=== PATIENT | female | born 1930 | race Caucasian/White ===

== ENCOUNTER 2017-02-23 10:11 | Emergency (ER) | payer MEDICARE, OTHER ==
[~2017-02-23] VITALS: Ht 162.6 cm; Wt 66.7 kg
[~2017-02-23 10:11] MED LIST: AMLO5TAB2 PO; CHOL20002 PO; LISI-552 PO; MECL-106 PO; MULT-974 PO; OMEP20CA12 PO; ONDA4TAB8 PO; PRAV40TA2 PO; SCOP1PAT TD
[2017-02-23] MEDS ORDERED: L.E.T. SYRINGE 5 ML ONE (10:16)
--- OUTSIDE RECORDS SUMMARY | 2017-02-23 10:21 | XMS REPORT | Clinical Summary ---
Author Author [facility] Organization [facility] Address Unknown Phone Unavailable Care Team Providers Care Project Management Analyst Name Role Phone PCP Unavailable Source Comments Some departments are not documenting in the electronic medical record. If you do not see the information that you expected, contact Release of Information in the Health Information Management department at [phone] for further assistance in locating additional records.[facility] Allergies No Known Allergies Current Medications Prescription Sig. Disp. Refills Start End Date Status Date cholecalciferol (Vitamin Take 2,000 Units by mouth Active D3) (VITAMIN D-3) 1,000 daily. units tablet MULTIVITAMIN PO Take 1 Cap by mouth Active daily. omeprazole DR(+) Take 20 mg by mouth Active (PRILOSEC) 20 mg capsule daily. pravastatin (PRAVACHOL) Take 1 Tab by mouth 90 Cap 3 09/29/19 Active 40 mg tablet daily. 16 amLODIPine (NORVASC) 5 mg Take 1 Tab by mouth 90 Tab 1 05/15/20 Active tablet daily. 16 lisinopril (PRINIVIL; TAKE 1 TABLET TWICE A DAY 180 Tab 2 06/04/20 Active ZESTRIL) 20 mg tablet 16 Active Problems Problem Noted Date Essential hypertension 09/28/2015 Hyperlipidemia 09/28/2015 Hyperglycemia 03/10/2014 Dysphagia 04/20/2013 Hypertension Hyperlipidemia Sleep disorder Arthritis Stomach disorder Immunizations Name Dates Previously Given Next Due Flu Vaccine Trivalent >64 04/13/2015 Yo High-dose (Preservative Free) Pneumococcal Vaccine 07/08/2010 (23-Julissa Adult) Pneumococcal 03/23/2015 Vaccine(13-[facility] Peds/immunocompromised adult) Tdap Vaccine 10/19/2013 Family History Medical History Relation Name Comments Diabetes Father Heart Disease Father Diabetes Maternal Uncle Hypertension Mother Diabetes Sister Relation Name Status Comments Father heart (Age 58) Maternal Uncle Mother (Age 85) Other diabetes (Age 77) Sister Social History Tobacco Use Types Packs/Day Years Used Date Never Smoker Smokeless Tobacco: Never Used Tobacco Cessation: Counseling Given: No Alcohol Use Drinks/Week oz/Week Comments No Sex Assigned at Date Recorded Not on file Last Filed Vital Signs Vital Sign Reading Time Taken Blood Pressure 130/88 09/28/2015 9:06 AM CDT Pulse 80 09/28/2015 9:06 AM CDT Temperature 36.7 C (98 F) 06/24/2015 12:55 PM DECORATING INSTRUCTOR Respiratory Rate 14 07/15/2015 10:11 AM DECORATING INSTRUCTOR Oxygen Saturation 98% 06/24/2015 12:55 PM DECORATING INSTRUCTOR Inhaled Oxygen - - Concentration Weight 68.4 kg (150 lb 12.8 oz) 09/28/2015 9:06 AM CDT Height 162.6 cm (5' 4") 09/28/2015 9:06 AM CDT Body Mass Index 25.88 09/28/2015 9:06 AM CDT Plan of Treatment Health Maintenance Due Date Last Done Comments PHYSICAL (COMPREHENSIVE) 10/19/2014 10/19/2013 EXAM INFLUENZA VACCINE 03/08/2017 04/13/2015 TETANUS VACCINE 10/20/2023 10/19/2013 SHINGLES VACCINE Addressed 10/19/2008 (Previously completed) Overridden with the intention of not completing the topic OSTEOPOROSIS SCREENING Completed 10/19/2013 PERTUSSIS VACCINE Completed 10/19/2013 PREVNAR/PNEUMOVAX Completed 03/23/2015, 07/08/2010 Results Not on filefrom Last 3 Months
[2017-02-23] MEDS ORDERED: fentaNYL INJECTION 100 MCG/2 ML AMP IVP STA (10:30)
[2017-02-23] MEDS ORDERED: TETANUS,DIPTH,PERTUSS P/F (BOOSTRIX) 0.5 ML VIAL IM STA (10:30)
--- NOTE | 2017-02-23 10:50 | ED Fall/Injury ---
General Chief Complaint: Trauma-Non Activation Stated Complaint: FALL Nursing Triage Note: SEE NON-TRAUMA ACTIVATION Source: patient Exam Limitations: no limitations History of Present Illness Time seen by provider: 10:17 Initial Comments Here with report of pain to left wrist and left side of head after falling while walking her dog. She apparently tripped on a curb/sidewalk and landed on her left side. She broke her fall with her left wrist but did hit her head on the left. She has 3 cm laceration to the left side of the face lateral to the left eye and brow. Complains of pain and deformity of the left wrist. Has previously broken the left wrist several years ago. Denies loss of consciousness. Tetanus is not up-to-date. Location Injury Occurred: [place] Occurred: just prior to arrival (approximately 30 minutes ago) Severity: moderate Injuries/Pain Location: face, upper extremity Context: tripped Loss of Consciousness: no loss of consciousness Modifying Factors: Improves With Immobilization, Worse With Movement, Improves With Pain Medication Associated Symptoms (Fall): No Abdominal Pain, No Chest Pain, Headache, No Muscle Spasms, No Nausea/Vomiting, No Neck Pain, No Shortness of Air Allergies and Home Medications Allergies Coded Allergies: No Known Drug Allergies (Unverified , 04/24/16) Home Medications Amlodipine Besylate 5 Mg Tablet, 5 MG PO DAILY, (Reported) Cholecalciferol (Vitamin D3) 2,000 Unit Capsule, 2,000 UNIT PO DAILY, (Reported) Lisinopril 20 Mg Tablet, 20 MG PO BID, (Reported) Multivitamin 1 Each Tablet, 1 EACH PO DAILY, (Reported) Omeprazole 20 Mg Capsule.dr, 20 MG PO DAILY, (Reported) Pravastatin Sodium 40 Mg Tablet, 40 MG PO DAILY, (Reported) Constitutional: see HPI, No chills, No fever Eyes: No Symptoms Reported Ears, Nose, Mouth, Throat: see HPI, denies ear pain, denies nose pain, denies nose discharge Respiratory: no symptoms reported Cardiovascular: no symptoms reported Gastrointestinal: no symptoms reported, No abdominal pain, No nausea, No vomiting Genitourinary: no symptoms reported Musculoskeletal: see HPI, joint pain, joint swelling, muscle pain Skin: see HPI, change in color, lesions Psychiatric/Neurological: No Symptoms Reported, Denies Headache, Denies Numbness, Denies Paresthesia, Denies Tingling, Denies Weakness All Other Systems Reviewed Negative Unless Noted: Yes Past Jjrsqvn-Rpmzkt-Nwexxi Hx Patient Social History Alcohol Use: Denies Use Recreational Drug Use: No Smoking Status: Never a Smoker Recent Foreign Travel: No Contact w/Someone Who Travel: No Recent Infectious Disease Expo: No Recent Hopitalizations: No Immunizations Up To Date Tetanus Booster (TDap): More than 5yrs Date of Influenza Vaccine: Apr 10, 2016 Seasonal Allergies Seasonal Allergies: Yes Surgeries HX Surgeries: Yes Surgeries: Appendectomy, Bladder Surgery, Cystectomy, Hysterectomy Respiratory Hx Respiratory Disorders: No Cardiovascular Hx Cardiac Disorders: Yes Cardiac Disorders: High Cholesterol, Hypertension Neurological Hx Neurological Disorders: No Genitourinary Hx Genitourinary Disorders: No Gastrointestinal Hx Gastrointestinal Disorders: Yes Gastrointestinal Disorders: Gastroesophageal Reflux Musculoskeletal Hx Musculoskeletal Disorders: No Endocrine Hx Endocrine Disorders: No HEENT HX ENT Disorders: Yes Hearing Impairment: Hard of Hearing, Bilateral Hearing Aide Cancer Hx Cancer: No Psychosocial Hx Psychiatric Problems: No Integumentary HX Skin/Integumentary Disorder: No Blood Transfusions Hx Blood Disorders: No Reviewed Nursing Assessment Reviewed/Agree w Nursing PMH: Yes Family Medical History Significant Family History: No Pertinent Family Hx Physical Exam Vital Signs Vital Sign - Last 12Hours 02/23/17 10:12 Temp 97.8 Pulse 93 Resp 18 B/P (MAP) 174/86 Pulse Ox 99 Capillary Refill : Less Than 3 Seconds General Appearance: WD/WN, no apparent distress HEENT: PERRL/EOMI, TMs normal, pharynx normal, other (laceration left side of face near and lateral to the left eye and brow. Approximately 3 cm) Neck: full range of motion, supple Cardiovascular: regular rate, rhythm, no murmur Respiratory: lungs clear, normal breath sounds Gastrointestinal: non tender, soft Back: normal inspection, no CVA tenderness, no vertebral tenderness Extremities: non-tender, normal inspection Neurologic/Psychiatric: alert, oriented x 3 Skin: warm/dry, other (approximately 3 cm laceration to the area of the left side of the face lateral to the left eye vertically oriented. Abrasion noted to the left knee superficial and approximately 3 x 5 cm) Luis Coma Score Best Eye Response: (4) Open Spontaneously Best Verbal Response: (5) Oriented Best Motor Response: (6) Obeys Commands Laceration Repair : Wound Location: Face Other Wound Location Left lateral face Wound Length (cm): 3 Wound's Depth, Shape: superficial Wound Explored: contaminated Irrigated w/ Saline (ccs): 50 Betadine Prep?: No Wound Debrided: minimal Other Closure Supply: Wound Adhesive Progress Cleaned with Betasept and saline. Covered with LET for anesthesia. Closed with skin glue. Tolerated procedure well. No complications. Splinting and Joint Reduction : Pre-Proc Neuro Vasc Exam: normal Post-Proc Neuro Vasc Exam: normal Progress Sugar tong splint placed and joint reduced with fracture alignment performed by me after placement of splint after hematoma block done. Patient tolerated procedure well with no Occasions. Distal neurovascular status intact after placement of splint. Patient reports markedly reduced pain. Hand-Made Type: fiberglass Splint Application: Short Arm (sugar tong) Progress/Results/Core Measures Results/Orders My Orders Orders - JILLIAN KIRK MD Ct Head/Cervical Spine Wo (02/23/17 10:13) Wrist, Left, 3 Views Or More (02/23/17 10:13) Let Solution (Let Solution) (02/23/17 10:16) Fentanyl Injection (Sublimaze Injection (02/23/17 10:30) Dipht,Pertuss(Acell),Tet Adult (Boostrix (02/23/17 10:30) Lidocaine 2% Injection 20 Ml (Xylocaine (02/23/17 11:24) Ondansetron Injection (Zofran Injectio (02/23/17 11:28) Ondansetron Injection (Zofran Injectio (02/23/17 11:45) Forearm, Left, 2 Views (02/23/17 12:27) Medications Given in ED Current Medications Medications Dose Ordered Sig/Khurram Route Start Time Stop Time Status Last Admin Dose Admin Ondansetron HCl 4 mg ONCE ONCE IVP 02/23/17 11:45 02/23/17 11:46 DC 02/23/17 11:30 4 MG Tetracaine/ Epinephrine/ Lidocaine 1 ea STK-MED ONCE .ROUTE 02/23/17 10:16 02/23/17 10:23 DC 02/23/17 10:25 1 EA Vital Signs/I&O Vital Sign - Last 12Hours 02/23/17 10:12 Temp 97.8 Pulse 93 Resp 18 B/P (MAP) 174/86 Pulse Ox 99 Blood Pressure Mean: 115 Progress Note : Progress Note Seen and evaluated. CT head and neck ordered. X-ray left wrist ordered. Tetanus ordered. Fentanyl 25 g IV. Monitor patient. 1116: Fentanyl did improve the pain. I did discuss the case with Dr. Wick. We will do a hematoma block and sugar tong splint. He will see her in the office on Saturday. We will do simple reduction with splint placement. Patient is complaining of nausea so Zofran 4 mg IV given. 1134: Hematoma block with lidocaine 2 percent 4 mL done and patient had marked improvement of her pain. Wound to be closed by MARI Castro via Dermabond. 1310: Reduction and splinting performed by me with assistance of MARI Castro. Post reduction films noted and improved alignment noted. Discharged home with return precautions. Patient family verbalized understanding instructions and agreement with plan. Patient will see Dr. Wick on Saturday. Diagnostic Imaging Diagonstic Imaging: Xray Plain Films/CT/US/NM/MRI: other Comments VIA [facility]. [place], [place] NAME: ANGÉLICA STARK [facility] REC#: [id number] PT STATUS: REG ER : 1930 PHYSICIAN: JILLIAN KIRK MD ADMIT DATE: 02/23/17/ER Draft Date of Exam:02/23/17 WRIST, LEFT, 3 VIEWS OR MORE INDICATION: Fall, deformity, fracture. History previous wrist fracture 20 years prior. TECHNIQUE: 3 views of the left wrist CORRELATION STUDY: None FINDINGS: There is a comminuted but predominantly transverse fracture of the distal radius. There is significant volar displacement of the majority of the fracture fragments. Fracture lines do extend into the articular surface. The carpal bones follow displaced distal radial fracture fragments. Nondisplaced ulnar styloid process fracture is noted. Age of this is somewhat indeterminate may be chronic. However there does appear to be additional nondisplaced fracture of the distal ulna as well. Diffuse bony demineralization. Rather advanced degenerative change of the first carpometacarpal articulation. IMPRESSION: 1. Comminuted impacted displaced interarticular distal left radius fracture. Indeterminate ulnar styloid process fracture with an additional nondisplaced fracture of the distal ulna shaft. Dictated on workstation # [id number] Dict: 02/23/17 1106 Trans: 02/23/17 1116 EULALIO [id number] Interpreted by: RICHARD HENRY DO Electronically signed by: Diagonstic Imaging: CT Plain Films/CT/US/NM/MRI: c-spine, head Diagonstic Imaging: Xray Plain Films/CT/US/NM/MRI: forearm Comments VIA [facility]. [place], [place] NAME: ANGÉLICA STARK [facility] REC#: [id number] PT STATUS: REG ER : 1930 PHYSICIAN: JILLIAN KIRK MD ADMIT DATE: 02/23/17/ER Draft Date of Exam:02/23/17 FOREARM, LEFT, 2 VIEWS INDICATION: Postreduction. Exam compared with study earlier this same date. FINDINGS: Alignment and impaction of the distal radial metadiaphyseal junction fracture significantly improved. Residual anterior angulation much less pronounced. Anterior displacement of major distal fragment no longer apparent. Avulsion at the base of the ulnar styloid unchanged this may be chronic. IMPRESSION: Much improved alignment with decreased impaction, angulation and displacement of distal radial fracture. Dictated on workstation # [id number] Dict: 02/23/17 1243 Trans: 02/23/17 1248 [id number] Interpreted by: SAUD LA Electronically signed by: Reviewed: Reviewed by Me Departure Communication Time/Spoke to Consulting Physi: 11:16 Impression Impression: Primary Impression: Distal radius fracture, left Qualified Codes: S52.572A - Other intraarticular fracture of lower end of left radius, initial encounter for closed fracture Additional Impression: Laceration of face Qualified Codes: S01.81XA - Laceration without foreign body of other part of head, initial encounter Disposition: 01 HOME, SELF-CARE Condition: Improved Departure-Patient Inst. Decision time for Depature: 13:18 Referrals: OLGA HILTON MD (PCP/Family) Primary Care Physician SHANIKA WICK MD Patient Instructions: Forearm Fracture (DC), Laceration Repair With Glue (DC) Add. Discharge Instructions: All discharge instructions reviewed with patient and/or family. Voiced understanding. Take medications as directed. Follow-up with Dr. Wick on Saturday. Return for worse pain, fever, vomiting, weakness, numbness or tingling in her fingers or other concerns as needed. Scripts Hydrocodone/Acetaminophen (Hydrocodon -Acetaminophen 5-325) 1 Each Tablet 1 EACH PO Q6H Y for PAIN-MODERATE, #12 TAB 0 Refills Prov: JILLIAN KIRK MD 02/23/17 Copy Copies To 1: SHANIKA WICK MD, TIMOTHY D MD Feb 23, 2017 10:50
--- NOTE | 2017-02-23 11:17 | Diagnostic Imaging Report ---
INDICATION: Fall, deformity, fracture. History previous wrist fracture 20 years prior. TECHNIQUE: 3 views of the left wrist CORRELATION STUDY: None FINDINGS: There is a comminuted but predominantly transverse fracture of the distal radius. There is significant volar displacement of the majority of the fracture fragments. Fracture lines do extend into the articular surface. The carpal bones follow displaced distal radial fracture fragments. Nondisplaced ulnar styloid process fracture is noted. Age of this is somewhat indeterminate may be chronic. However there does appear to be additional nondisplaced fracture of the distal ulna as well. Diffuse bony demineralization. Rather advanced degenerative change of the first carpometacarpal articulation. IMPRESSION: 1. Comminuted impacted displaced interarticular distal left radius fracture. Indeterminate ulnar styloid process fracture with an additional nondisplaced fracture of the distal ulna shaft. Dictated by: Dictated on workstation # [id number]
[2017-02-23] MEDS ORDERED: LIDOCAINE 2% 20 ML (XYLOCAINE) VIAL INJ STA (11:24)
[2017-02-23] MEDS ORDERED: ONDANSETRON 4 MG/2 ML (SDV) Z0FRAN ONE (11:28)
--- NOTE | 2017-02-23 11:38 | Diagnostic Imaging Report ---
PROCEDURE: CT head and CT cervical spine without contrast. TECHNIQUE: Multiple contiguous axial images were obtained through the brain and cervical spine without the use of intravenous contrast. Sagittal and coronal reformations through the cervical spine were then performed. INDICATION: Fall with lacerations to the left head anteriorly, pain. Head CT compared to 04/24/2016. There is cerebral cortical atrophy and extensive periventricular white matter disease all unchanged from prior. No focal edema. No sulcal effacement. There are no abnormal extra-axial fluid collections and there is no evidence for intracranial involvement by hemorrhage. Atrophy is unchanged without savita hydrocephalus. Orbits, sinuses and calvarium appeared nonacute. Tiny scalp irregularity supraorbital left frontal region noted. No retained opaque foreign body. CT cervical spine: The vertebral body heights are within normal limits. There is no acute or suspicious endplate irregularity. There is grade 1 listhesis anteriorly C3 on C4 of 4 mm. Remaining levels are aligned normally. Disc space narrowing, endplate sclerosis and uncovertebral joint spurring greatest at the C4-5 and C5-C6 as well as C6-C7 levels. These findings however result in only mild canal stenosis and multilevel mild bony foraminal narrowing present. A cervical fracture is not identified and there is no paravertebral hemorrhage. There is chronic vascular calcifications of the carotids and partially calcified multinodular enlargement of both lobes of the thyroid. IMPRESSION: CT head: Chronic senescent and atrophic changes as well as chronic white matter disease. Small focal area of scalp irregularity on the left. No fracture or hemorrhage. CT cervical spine: Degenerative changes with slight grade 1 degenerative listhesis. No severe stenosis or fracture. 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 Dictated by: Dictated on workstation # [id number]
[2017-02-23] MEDS ORDERED: ONDANSETRON 4 MG/2 ML (SDV) Z0FRAN IVP ONE (11:45)
--- NOTE | 2017-02-23 12:48 | Diagnostic Imaging Report ---
INDICATION: Postreduction. Exam compared with study earlier this same date. FINDINGS: Alignment and impaction of the distal radial metadiaphyseal junction fracture significantly improved. Residual anterior angulation much less pronounced. Anterior displacement of major distal fragment no longer apparent. Avulsion at the base of the ulnar styloid unchanged this may be chronic. IMPRESSION: Much improved alignment with decreased impaction, angulation and displacement of distal radial fracture. Dictated by: Dictated on workstation # [id number]
[2017-02-23] MEDS ORDERED: HYDR-3812 PO (13:19)
[2017-02-23 13:37] VITALS: BP 142/78
== END 2017-02-23 13:37 | disposition home or self-care (01) ==
LOC: EDUNIT# 10:11 → ER 10:12
DX: S52.572A Other intraarticular fracture of lower end of left radius, initial encounter for closed fracture (principal); S01.81XA Laceration without foreign body of other part of head, initial encounter; E78.00 Pure hypercholesterolemia, unspecified; I10 Essential (primary) hypertension; K21.9 Gastro-esophageal reflux disease without esophagitis; Z90.49 Acquired absence of other specified parts of digestive tract; Z90.710 Acquired absence of both cervix and uterus; Z90.79 Acquired absence of other genital organ(s); W10.1XXA Fall (on)(from) sidewalk curb, initial encounter; Y92.480 Sidewalk as the place of occurrence of the external cause; Y93.K1 Activity, walking an animal
CPT/HCPCS: 12011; 25605; 29125; 64450; 70450; 72125; 73090; 73110; 90471; 90715; 96374; 96375

== ENCOUNTER 2017-08-09 07:16 | Observation (INO) | payer MEDICARE, OTHER ==
[~2017-08-09] VITALS: Ht 162.6 cm; Wt 68.2 kg
[~2017-08-09 07:16] MED LIST changes: +ACHD5005 PO
--- OUTSIDE RECORDS SUMMARY | 2017-08-09 07:21 | XMS REPORT | Clinical Summary ---
Author Author [facility] Organization [facility] Address Unknown Phone Unavailable Care Team Providers Care Post Commander Name Role Phone Johnny Lambert MD Unavailable Royal Doherty MD Unavailable Carolin Rangel MD PCP Lucia Fernández APRN Unavailable Gertrude Agudelo LPN Unavailable Unavailable Source Comments Some departments are not documenting in the electronic medical record. If you do not see the information that you expected, contact Release of Information in the Health Information Management department at [phone] for further assistance in locating additional records.[facility] Allergies No Known Allergies Current Medications Prescription [...] 36.7 C (98 F) 06/24/2015 12:55 PM C DEVELOPER Respiratory Rate 14 07/15/2015 10:11 AM C DEVELOPER Oxygen Saturation 98% 06/24/2015 12:55 PM C DEVELOPER Inhaled Oxygen - - Concentration Weight 68.4 kg (150 lb 12.8 oz) 09/28/2015 9:06 AM CDT Height 162.6 cm (5' 4") 09/28/2015 9:06 AM CDT Body Mass Index 25.88 09/28/2015 9:06 AM CDT Plan of Treatment Health Maintenance Due Date Last Done Comments PHYSICAL (COMPREHENSIVE) 10/19/2014 10/19/2013 EXAM INFLUENZA VACCINE 02/05/2017 04/13/2015 TETANUS VACCINE 10/20/2023 10/19/2013 SHINGLES VACCINE Addressed 10/19/2008 (Previously completed) Overridden with the intention of not completing the topic OSTEOPOROSIS SCREENING Completed 10/19/2013 PERTUSSIS VACCINE Completed 10/19/2013 PREVNAR/PNEUMOVAX Completed 03/23/2015, 07/08/2010 Results Not on filefrom Last 3 Months
--- NOTE | 2017-08-09 07:26 | ED General ---
General Stated Complaint: WEAKNESS,COUGH Source of Information: Patient, EMS Exam Limitations: No Limitations History of Present Illness Date Seen by Provider: Aug 09, 2017 Time Seen by Provider: 07:25 Initial Comments The patient is an 87-year-old white female brought to the emergency room by ambulance with complaints of cough and generalized weakness. Cosleep Associated Systoms: Cough, Fever/Chills, Weakness Allergies and Home Medications Allergies Coded Allergies: No Known Drug Allergies (Unverified , 04/24/16) Home Medications Amlodipine Besylate 5 Mg Tablet, 5 MG PO DAILY, (Reported) Cholecalciferol (Vitamin D3) 2,000 Unit Capsule, 2,000 UNIT PO DAILY, (Reported) Hydrocodone Bit/Acetaminophen 1 Each Tablet, 1 EACH PO Q6H PRN for PAIN-MODERATE , #12 Ref 0 Prescribed by: JILLIAN KIRK on 02/23/17 1319 Lisinopril 20 Mg Tablet, 20 MG PO BID, (Reported) Lisinopril 40 Mg Tablet, (Reported) Multivitamin 1 Each Tablet, 1 EACH PO DAILY, (Reported) Omeprazole 20 Mg Capsule.dr, 20 MG PO DAILY, (Reported) Pravastatin Sodium 40 Mg Tablet, 40 MG PO DAILY, (Reported) Constitutional: see HPI EENTM: nose congestion Respiratory: cough Cardiovascular: no symptoms reported Gastrointestinal: no symptoms reported Genitourinary: no symptoms reported Musculoskeletal: muscle pain Skin: no symptoms reported Psychiatric/Neurological: No Symptoms Reported Hematologic/Lymphatic: No Symptoms Reported Immunological/Allergic: no symptoms reported Past Orwlanf-Ezyjtb-Pumaif Hx Patient Social History Recent Hopitalizations: No Immunizations Up To Date Tetanus Booster (TDap): More than 5yrs Date of Influenza Vaccine: Apr 10, 2016 Seasonal Allergies Seasonal Allergies: Yes Surgeries History of Surgeries: Yes Surgeries: Appendectomy, Bladder Surgery, Cystectomy, Hysterectomy Respiratory History of Respiratory Disorde: No Cardiovascular History of Cardiac Disorders: Yes Cardiac Disorders: High Cholesterol, Hypertension Neurological History of Neurological Disord: No Gastrointestinal History of Gastrointestinal Di: Yes Gastrointestinal Disorders: Gastroesophageal Reflux Musculoskeletal History of Musculoskeletal Dis: No Endocrine History of Endocrine Disorders: No HEENT Hearing Impairment: Hard of Hearing, Bilateral Hearing Aide Cancer History of Cancer: No Psychosocial History of Psychiatric Problem: No Integumentary History of Skin or Integumenta: No Blood Transfusions History of Blood Disorders: No Family Medical History Significant Family History: No Pertinent Family Hx Physical Exam Vital Signs Vital Sign - Last 12Hours 08/09/17 07:16 Temp 99.6 Pulse 101 Resp 18 B/P (MAP) 163/82 (109) Pulse Ox 98 O2 Delivery Room Air Capillary Refill : General Appearance: Mild Distress Eyes: Bilateral Eye Normal Inspection HEENT: Normal ENT Inspection Neck: Full Range of Motion, Normal Inspection, Non Tender, Supple, Carotid Bruit Respiratory: Other (harsh rattling cough) Cardiovascular: Regular Rate, Rhythm, No Edema, No Gallop, No JVD, No Murmur, Normal Peripheral Pulses Gastrointestinal: Normal Bowel Sounds, No Organomegaly, No Pulsatile Mass, Non Tender, Soft Back: Normal Inspection, No CVA Tenderness, No Vertebral Tenderness Extremity: Normal Capillary Refill, Normal Inspection, Normal Range of Motion, Non Tender, No Calf Tenderness, No Pedal Edema Skin: Normal Color, Warm/Dry Lymphatic: No Adenopathy Progress/Results/Core Measures Suspected Sepsis SIRS Temperature: Pulse: Respiratory Rate: Laboratory Tests 08/09/17 07:31: White Blood Count 8.9 Blood Pressure / Mean: Laboratory Tests 08/09/17 07:31: Creatinine 0.84, Platelet Count 245, Total Bilirubin 0.5 Results/Orders Lab Results Laboratory Tests Test 08/09/17 07:31 Range/Units White Blood Count 8.9 4.3-11.0 10^3/uL Red Blood Count 4.39 4.35-5.85 10^6/uL Hemoglobin 12.9 11.5-16.0 G/DL Hematocrit 37 35-52 % Mean Corpuscular Volume 84 80-99 FL Mean Corpuscular Hemoglobin 29 25-34 PG Mean Corpuscular Hemoglobin Concent 35 32-36 G/DL Red Cell Distribution Width 15.8 H 10.0-14.5 % Platelet Count 245 130-400 10^3/uL Mean Platelet Volume 11.5 H 7.4-10.4 FL Neutrophils (%) (Auto) 78 H 42-75 % Lymphocytes (%) (Auto) 6 L 12-44 % Monocytes (%) (Auto) 15 H 0-12 % Eosinophils (%) (Auto) 0 0-10 % Basophils (%) (Auto) 1 0-10 % Neutrophils # (Auto) 7.0 1.8-7.8 X 10^3 Lymphocytes # (Auto) 0.5 L 1.0-4.0 X 10^3 Monocytes # (Auto) 1.4 H 0.0-1.0 X 10^3 Eosinophils # (Auto) 0.0 0.0-0.3 10^3/uL Basophils # (Auto) 0.1 0.0-0.1 10^3/uL Neutrophils % (Manual) 85 % Lymphocytes % (Manual) 7 % Monocytes % (Manual) 8 % Eosinophils % (Manual) 0 % Basophils % (Manual) 0 % Band Neutrophils 0 % Sodium Level 132 L 135-145 MMOL/L Potassium Level 3.9 3.6-5.0 MMOL/L Chloride Level 98 98-107 MMOL/L Carbon Dioxide Level 21 21-32 MMOL/L Anion Gap 13 5-14 MMOL/L Blood Urea Nitrogen 16 7-18 MG/DL Creatinine 0.84 0.60-1.30 MG/DL Estimat Glomerular Filtration Rate > 60 BUN/Creatinine Ratio 19 Glucose Level 124 H 70-105 MG/DL Calcium Level 9.1 8.5-10.1 MG/DL Total Bilirubin 0.5 0.1-1.0 MG/DL Aspartate Amino Transf (AST/SGOT) 41 H 5-34 U/L Alanine Aminotransferase (ALT/SGPT) 24 0-55 U/L Alkaline Phosphatase 57 40-136 U/L Total Protein 7.1 6.4-8.2 GM/DL Albumin 4.1 3.2-4.5 GM/DL Micro Results Microbiology 08/09/17 Influenza Types A,B Antigen (CARL) - Final, Complete My Orders Orders - BONNIE AGUIALR MD Cbc With Automated Diff (08/09/17 07:26) Comprehensive Metabolic Panel (08/09/17 07:26) Ua Culture If Indicated (08/09/17 07:26) Chest 1 View, Ap/Pa Only (08/09/17 07:26) Manual Differential (08/09/17 07:31) Blood Culture (08/09/17 08:44) Influenza A And B Antigens (08/09/17 08:44) Sputum Culture (08/09/17 08:44) Lactic Acid Analyzer (08/09/17 08:44) Ns Iv 1000 Ml (Sodium Chloride 0.9%) (08/09/17 08:45) Vital Signs/I&O Vital Sign - Last 12Hours 08/09/17 07:16 Temp 99.6 Pulse 101 Resp 18 B/P (MAP) 163/82 (109) Pulse Ox 98 O2 Delivery Room Air Capillary Refill : Departure Communication (Admissions) Progress Notes Influenza B-positive Discussed with Dr. Pascual, hospitalist, at 10 Impression Impression: Primary Impression: Influenza-like symptoms Disposition: ADMITTED INPATIENT Condition: Stable/Unchanged Admissions Decision to Admit Reason: Admit from ER (General) Decision to Admit/Date: Aug 09, 2017 Time/Decision to Admit Time: 08:58 Departure-Patient Inst. Referrals: OLGA HILTON MD (PCP/Family) Primary Care Physician BONNIE AGUILAR MD Aug 09, 2017 07:26
[2017-08-09 07:38] LABS: BASOPHILS # (AUTO) 0.1 10^3/uL (0.0-0.1); BASOPHILS % (AUTO) 1 % (0-10); EOSINOPHILS % (AUTO) 0 % (0-10); HEMATOCRIT 37 % (35-52); HEMOGLOBIN 12.9 G/DL (11.5-16.0); LYMPHOCYTES # (AUTO) 0.5 X 10^3 (1.0-4.0); LYMPHOCYTES % (AUTO) 6 % (12-44); MEAN CORPUSCULAR HEMOGLOBIN 29 PG (25-34); MEAN CORPUSCULAR HGB CONC 35 G/DL (32-36); MEAN CORPUSCULAR VOLUME 84 FL (80-99); MEAN PLATELET VOLUME 11.5 FL (7.4-10.4); MONOCYTES # (AUTO) 1.4 X 10^3 (0.0-1.0); MONOCYTES % (AUTO) 15 % (0-12); NEUTROPHILS % (AUTO) 78 % (42-75); PLATELET COUNT 245 10^3/uL (130-400); RED BLOOD COUNT 4.39 10^6/uL (4.35-5.85); RED CELL DISTRIBUTION WIDTH 15.8 % (10.0-14.5); WHITE BLOOD COUNT 8.9 10^3/uL (4.3-11.0)
[2017-08-09] MEDS ORDERED: LISI40TA PO (07:42)
[2017-08-09 07:56] LABS: BAND NEUTROPHILS 0 %; BASOPHILS % (MANUAL) 0 %; EOSINOPHILS % (MANUAL) 0 %; LYMPHOCYTES % (MANUAL) 7 %; MONOCYTES % (MANUAL) 8 %; NEUTROPHILS % (MANUAL) 85 %
[2017-08-09 07:59] LABS: ALANINE AMINOTRANSFERASE 24 U/L (0-55); ALBUMIN 4.1 GM/DL (3.2-4.5); ALKALINE PHOSPHATASE 57 U/L (40-136); BILIRUBIN,TOTAL 0.5 MG/DL (0.1-1.0); BUN/CREATININE RATIO 19; CALCIUM 9.1 MG/DL (8.5-10.1); CARBON DIOXIDE 21 MMOL/L (21-32); CHLORIDE 98 MMOL/L (98-107); CREATININE SERUM 0.84 MG/DL (0.60-1.30); GFR ESTIMATED > 60; GLUCOSE 124 MG/DL (70-105); POTASSIUM 3.9 MMOL/L (3.6-5.0); SODIUM 132 MMOL/L (135-145); TOTAL PROTEIN 7.1 GM/DL (6.4-8.2)
--- NOTE | 2017-08-09 08:11 | Diagnostic Imaging Report ---
INDICATION: Dizziness. Time of exam: 7:48 AM Correlation is made with prior study from 04/24/2016. The heart size is stable. Lungs are clear. No infiltrate or failure is detected. There is no effusion or pneumothorax. IMPRESSION: No acute cardiopulmonary process is detected. Dictated by: Dictated on workstation # [id number]
[2017-08-09] MEDS ORDERED: NS IV 1000 ML 1,000 ML IV SCH (08:45)
--- OUTSIDE RECORDS SUMMARY | 2017-08-09 09:19 | XMS REPORT | Clinical Summary ---
Author Author [facility] Organization [facility] Address Unknown Phone Unavailable Care Team Providers Care Instrument Man Name Role Phone Johnny Lambert MD Unavailable Royal Doherty MD Unavailable Carolin Rangel MD PCP Lucia Fernández APRN Unavailable Gertrude Agudelo LPN Unavailable Unavailable Source Comments Some departments are not documenting in the electronic medical record. If you do not see the information that you expected, contact Release of Information in the Health Information Management department at [phone] for further assistance in locating additional records.[facility] Allergies No Known Allergies Current Medications Prescription [...] 36.7 C (98 F) 06/24/2015 12:55 PM SPECIAL EDUCATION TEACHING ASSISTANT Respiratory Rate 14 07/15/2015 10:11 AM SPECIAL EDUCATION TEACHING ASSISTANT Oxygen Saturation 98% 06/24/2015 12:55 PM SPECIAL EDUCATION TEACHING ASSISTANT Inhaled Oxygen - - Concentration Weight 68.4 [...]
--- NOTE | 2017-08-09 09:22 | History & Physical-Hospitalist ---
HPI History of Present Illness: HPI/Chief Complaint CC: Influenza B with inability to ambulate HPI: This is an 87yoWF clinic patient of Dr Gregg'eugenia who presented to the ER w/c /o fever and cough and so weak she could no longer walk. The illness began yesterday morning and had worsened to the point that her daughter brought her to the ER. She was found to have influenza B positive the chest x-ray was normal but did have wheezing and hyponatremia so she was in need of Tamiflu administration along with IV fluid supportive care breathing treatments and monitored closely. Source: patient, family Exam Limitations: no limitations Date Seen 08/09/17 Time Seen by Provider: 09:15 Attending Physician Emily Pascual John D MD Referring Physician Date of Admission Aug 09, 2017 at 09:01 Home Medications & Allergies Home Medications Reviewed patient Home Medication Reconciliation Form Allergies Allergies Coded Allergies No Known Drug Allergies (Unverified08/09/17) Past Lkqsren-Igjfnf-Kzamoq Hx Patient Social History Marrital Status: Employed/Student: retired Alcohol Use: Occasionally Uses Recreational Drug Use: No Smoking Status: Never a Smoker 2nd Hand Smoke Exposure: No Recent Foreign Travel: No Contact w/other who traveled: No Recent Hopitalizations: No Recent Infectious Disease Expo: No Immunizations Up To Date Tetanus Booster (TDap): More than 5yrs Date of Influenza Vaccine: Apr 10, 2016 Seasonal Allergies Seasonal Allergies: Yes Surgeries Yes Appendectomy, Bladder Surgery, Cystectomy, Hysterectomy Respiratory No Cardiovascular Yes High Cholesterol, Hypertension Neurological No Gastrointestinal Yes Gastroesophageal Reflux Musculoskeletal No Endocrine History of Endocrine Disorders: No HEENT Hearing Impairment: Hard of Hearing, Bilateral Hearing Aide Cancer No Psychosocial History of Psychiatric Problem: No Integumentary History of Skin or Integumenta: No Blood Transfusions History of Blood Disorders: No Family Medical History Significant Family History: No Pertinent Family Hx Review of Systems Constitutional: see HPI, diaphoresis, dizziness, fever, malaise, weakness EENTM: no symptoms reported Respiratory: cough, wheezing Cardiovascular: no symptoms reported Gastrointestinal: loss of appetite, nausea Genitourinary: decreased output Musculoskeletal: back pain Skin: no symptoms reported Psychiatric/Neurological: No Symptoms Reported All Other Systems Reviewed Negative Unless Noted: Yes Physical Exam Physical Exam Vital Signs Vital Sign - Last 12Hours 08/09/17 07:16 Temp 99.6 Pulse 101 Resp 18 B/P (MAP) 163/82 (109) Pulse Ox 98 O2 Delivery Room Air Capillary Refill : Less Than 3 Seconds General Appearance: WD/WN, Chronically ill, Mild Distress (due to coughing) Eyes: Bilateral Eye Normal Inspection, Bilateral Eye PERRL HEENT: PERRL/EOMI, Normal ENT Inspection, Pharynx Normal Neck: Full Range of Motion, Normal Inspection, Non Tender, Supple, Carotid Bruit Respiratory: Chest Non Tender, No Accessory Muscle Use, No Respiratory Distress , Crackles, Decreased Breath Sounds, Wheezing Cardiovascular: Regular Rate, Rhythm, No Edema, No Gallop, No JVD, No Murmur, Normal Peripheral Pulses Gastrointestinal: Normal Bowel Sounds, No Organomegaly, No Pulsatile Mass, Non Tender, Soft Back: Normal Inspection, No CVA Tenderness, No Vertebral Tenderness Extremity: Normal Capillary Refill, Normal Inspection, Normal Range of Motion, Non Tender, No Calf Tenderness, No Pedal Edema Neurologic/Psychiatric: Alert, Oriented x3, No Motor/Sensory Deficits, Normal Mood/Affect Skin: Normal Color, Warm/Dry Lymphatic: No Adenopathy Results Results/Procedures Lab Laboratory Tests 08/09/17 07:31 Assessment/Plan Admission Diagnosis Assessment: Acute influenza B infection with inability to walk Assessment and Plan Plan: IVF Supportive care IVF Tamiflu Home meds Nebs O2 Anti-tussives Diagnosis/Problems Diagnosis/Problems (1) Influenza B Status: Acute Assessment & Plan: Tamiflu and supportive care (2) Wheezing Status: Acute Assessment & Plan: Nebs, O2 (3) Hyponatremia Status: Acute Assessment & Plan: IVF and check labs in am (4) Vertigo Status: Acute Assessment & Plan: Supportive care Fall risk EMILY PASCUAL DO Aug 09, 2017 09:22
[2017-08-09 09:30] VITALS: BP 159/74
[2017-08-09] MEDS ORDERED: DOCUSATE SODIUM 100 MG (COLACE) CAP PO PRN (10:15)
[2017-08-09] MEDS ORDERED: HYDROcodone/APAP 5 MG/325 MG (LORTAB) TAB PO PRN (10:15)
[2017-08-09] MEDS ORDERED: IBUPROFEN TABLET 200 MG TAB PO PRN (10:15)
[2017-08-09] MEDS ORDERED: ONDANSETRON 4 MG/2 ML (SDV) Z0FRAN IVP PRN (10:15)
[2017-08-09] MEDS ORDERED: ALPRAZolam 0.25 MG (XANAX) TAB PO PRN (10:15)
[2017-08-09] MEDS ORDERED: fentaNYL INJECTION 100 MCG/2 ML AMP IVP PRN (10:15)
[2017-08-09] MEDS ORDERED: ACETAMINOPHEN 500 MG TAB (TYLENOL) PO PRN (10:15)
[2017-08-09] MEDS: OSELTAMIVIR 30 MG (TAMIFLU) BOX OF 10 PO SCH ×2 (11:52→20:05)
[2017-08-09] MEDS: NS W/KCL 20 MEQ/L 1,000 ML IV SCH ×2 (11:52→20:05)
[2017-08-09 12:00] VITALS: BP 171/87
[2017-08-09] MEDS: RT-ALBUTEROL SULF 2.5 MG/3 ML PRE-MIX VIAL INH SCH ×2 (14:45→16:21)
[2017-08-09 15:55] VITALS: BP 138/67
[2017-08-09 16:26] VITALS: BP 163/82
[2017-08-09 19:30] VITALS: BP 140/85
[2017-08-09] MEDS: guaiFENesin/CODEINE (ROBITUSSIN AC) 10ML UDC PO PRN (20:05)
[2017-08-10] VITALS (7 sets, daily range): BP systolic 119–167; BP diastolic 60–80
[2017-08-10] MEDS: guaiFENesin/CODEINE (ROBITUSSIN AC) 10ML UDC PO PRN ×5 (00:10→20:43)
[2017-08-10] MEDS: NS W/KCL 20 MEQ/L 1,000 ML IV SCH ×2 (04:29→11:07)
[2017-08-10] MEDS: PANTOPRAZOLE 40 MG (PROTONIX) TAB PO SCH (05:48)
[2017-08-10 06:09] LABS: BASOPHILS % (AUTO) 0 % (0-10); EOSINOPHILS % (AUTO) 0 % (0-10); HEMATOCRIT 37 % (35-52); HEMOGLOBIN 12.6 G/DL (11.5-16.0); LYMPHOCYTES # (AUTO) 0.8 X 10^3 (1.0-4.0); LYMPHOCYTES % (AUTO) 11 % (12-44); MEAN CORPUSCULAR HEMOGLOBIN 29 PG (25-34); MEAN CORPUSCULAR HGB CONC 34 G/DL (32-36); MEAN CORPUSCULAR VOLUME 86 FL (80-99); MEAN PLATELET VOLUME 11.5 FL (7.4-10.4); MONOCYTES # (AUTO) 1.3 X 10^3 (0.0-1.0); MONOCYTES % (AUTO) 18 % (0-12); NEUTROPHILS # (AUTO) 5.3 X 10^3 (1.8-7.8); NEUTROPHILS % (AUTO) 71 % (42-75); PLATELET COUNT 220 10^3/uL (130-400); RED BLOOD COUNT 4.34 10^6/uL (4.35-5.85); RED CELL DISTRIBUTION WIDTH 16.4 % (10.0-14.5); WHITE BLOOD COUNT 7.4 10^3/uL (4.3-11.0)
[2017-08-10 06:39] LABS: ALANINE AMINOTRANSFERASE 29 U/L (0-55); ALBUMIN 3.5 GM/DL (3.2-4.5); ALKALINE PHOSPHATASE 45 U/L (40-136); BILIRUBIN,TOTAL 0.4 MG/DL (0.1-1.0); BUN/CREATININE RATIO 13; CALCIUM 8.6 MG/DL (8.5-10.1); CARBON DIOXIDE 20 MMOL/L (21-32); CHLORIDE 103 MMOL/L (98-107); CREATININE SERUM 0.82 MG/DL (0.60-1.30); GFR ESTIMATED > 60; GLUCOSE 110 MG/DL (70-105); POTASSIUM 4.2 MMOL/L (3.6-5.0); SODIUM 134 MMOL/L (135-145); TOTAL PROTEIN 6.1 GM/DL (6.4-8.2)
[2017-08-10] MEDS ORDERED: MULTIVIT W/MINERALS TAB (THERAGRAN M) PO SCH ×2 (07:00→09:00)
[2017-08-10] MEDS: RT-ALBUTEROL SULF 2.5 MG/3 ML PRE-MIX VIAL INH SCH ×4 (07:00→19:57)
[2017-08-10] MEDS ORDERED: PATIENT MAY USE OWN MEDS, ALL MC SCH (07:45)
[2017-08-10] MEDS ORDERED: ACETAMINOPHEN 500 MG TAB (TYLENOL) PO PRN (08:45)
[2017-08-10] MEDS: OSELTAMIVIR 30 MG (TAMIFLU) BOX OF 10 PO SCH ×2 (08:58→20:44)
[2017-08-10] MEDS: amLODIPine 5 MG (NORVASC) TAB PO SCH (08:58)
[2017-08-10] MEDS ORDERED: amLODIPine 5 MG (NORVASC) TAB PO SCH (09:00)
[2017-08-10] MEDS ORDERED: OMEPRAZOLE 20 MG (PriLOSEC) CAP NON-FORMULARY PO SCH (09:00)
[2017-08-10] MEDS ORDERED: lisINopril 20 MG (ZESTRIL) TAB PO SCH (09:00)
[2017-08-10] MEDS ORDERED: NON-FORMULARY MEDICATION 1 EA EA (Lisinopril 40 MG) PO SCH (09:00)
--- NOTE | 2017-08-10 10:20 | Diagnostic Imaging Report ---
EXAMINATION: PA and lateral chest at 10:14 a.m. INDICATION: Wheezing, cough. FINDINGS: The heart size is within normal limits and stable when compared to 08/09/2017. The lungs remain clear. There is still no evidence for failure or pneumonia. The lateral view does show that there is slight blunting of both costophrenic angles posteriorly. This may be secondary to pleural thickening. Small effusions could also present in this manner. The mediastinum is not widened. The osseous structures are intact. IMPRESSION: 1. There is blunting of the costophrenic angles posteriorly. Whether this is related to the presence of a small amount of pleural fluid bilaterally or to pleural thickening is not certain. 2. There is no acute cardiopulmonary abnormality noted otherwise. Dictated by: Dictated on workstation # [id number]
[2017-08-10] MEDS ORDERED: DOCUSATE SODIUM 100 MG (COLACE) CAP PO SCH (11:45)
[2017-08-10] MEDS ORDERED: CHLORASEPTIC SPRAY 177 ML LIQUID MC PRN (11:45)
[2017-08-10] MEDS ORDERED: [UNRECOGNIZED DRUG - OTHER] PO SCH (12:08)
--- NOTE | 2017-08-10 12:08 | Progress Note-Hospitalist ---
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 The illness began yesterday morning and had worsened to the point that her daughter brought her to the ER. She was found to have influenza B positive the chest x-ray was normal but did have wheezing and hyponatremia so she was in need of Tamiflu administration along with IV fluid supportive care breathing treatments and monitored closely. Progress Notes/Assess & Plan Date Seen 08/10/17 Time Seen by Provider: 10:45 Admission Dx/Process Assessment: Acute influenza B infection with inability to walk Diagonsis/Assessment & Plan Patient doing much better but has a sore throat and still very weak Has been ambulating fairly well Discharge planning for tomorrow per daughter IV fluids will be hep-locked since she is eating and drinking well Wants a little bit of something for her bowels and she is slightly constipated last was Check labs and meds No fever, vital signs stable, pleasant, improved, hard of hearing, cognitive decline noted daughter at the bedside Regular rate and rhythm, clear to auscultation bilaterally but very subtle crackles in the left lower lobe No edema Assessment: Acute influenza B infection with inability to walk Plan: HLIVF Supportive care IVF Tamiflu Home meds Nebs O2 Anti-tussives Chloraseptic spray BM regimen Diagnosis/Problems Diagnosis/Problems (1) Influenza B Status: Acute Assessment & Plan: Tamiflu and supportive care (2) Wheezing Status: Acute Assessment & Plan: Nebs, O2 (3) Hyponatremia Status: Resolved Assessment & Plan: IVF and check labs in am HLIVF today (4) Vertigo Status: Resolved Assessment & Plan: Supportive care Fall risk (5) Acute constipation Status: Acute Assessment & Plan: Colace, Miralax (6) Sore throat Status: Acute Assessment & Plan: Chloraseptic spray IRASEMA MOSQUERA DO Aug 10, 2017 12:08
[2017-08-10] MEDS: [UNRECOGNIZED DRUG - OTHER] PO SCH ×2 (12:33→20:43)
[2017-08-10] MEDS ORDERED: POLYETHYLENE GLYCOL 17 GM (MIRALAX) PACK PO SCH (21:00)
[2017-08-10] MEDS ORDERED: PATIENT MAY USE OWN MED,SINGLE MED PO SCH (21:00)
[2017-08-11] MEDS: guaiFENesin/CODEINE (ROBITUSSIN AC) 10ML UDC PO PRN ×2 (00:50→11:28)
[2017-08-11 03:44] VITALS: BP 105/50
[2017-08-11] MEDS: PANTOPRAZOLE 40 MG (PROTONIX) TAB PO SCH (06:12)
[2017-08-11] MEDS ORDERED: MULTIVITAMIN PO SCH (07:00)
[2017-08-11] MEDS: RT-ALBUTEROL SULF 2.5 MG/3 ML PRE-MIX VIAL INH SCH ×2 (07:43→12:13)
[2017-08-11] MEDS: [UNRECOGNIZED DRUG - OTHER] PO SCH (08:22)
[2017-08-11] MEDS: amLODIPine 5 MG (NORVASC) TAB PO SCH (08:22)
[2017-08-11] MEDS: OSELTAMIVIR 30 MG (TAMIFLU) BOX OF 10 PO SCH (08:22)
[2017-08-11 08:32] VITALS: BP 150/67
[2017-08-11] MEDS ORDERED: RELABEL FOR HOME USE MC SCH ×2 (12:15→12:30)
[2017-08-11] MEDS ORDERED: OSELTAMIVIR 30 MG (TAMIFLU) BOX OF 10 PO SCH (12:15)
[2017-08-11] MEDS ORDERED: OSEL30CA PO (12:18)
--- NOTE | 2017-08-11 12:21 | Discharge Summary-Hospitalist ---
Diagnosis/Chief Complaint Date of Admission Aug 09, 2017 at 09:01 Date of Discharge Discharge Date: Aug 11, 2017 Admission Diagnosis Assessment: Acute influenza B infection with inability to walk Discharge Diagnosis Patient doing much better but has a sore throat and still very weak Has been ambulating fairly well Discharge planning for tomorrow per daughter IV fluids will be hep-locked since she is eating and drinking well Wants a little bit of something for her bowels and she is slightly constipated last was Check labs and meds No fever, vital signs stable, pleasant, improved, hard of hearing, cognitive decline noted daughter at the bedside Regular rate and rhythm, clear to auscultation bilaterally but very subtle crackles in the left lower lobe No edema Assessment: Acute influenza B infection with inability to walk Plan: HLIVF Supportive care IVF Tamiflu Home meds Nebs O2 Anti-tussives Chloraseptic spray BM regimen (1) Influenza B Status: Acute Assessment & Plan: Tamiflu and supportive care (2) Wheezing Status: Acute Assessment & Plan: Nebs, O2 (3) Hyponatremia Status: Resolved Assessment & Plan: IVF and check labs in am HLIVF today (4) Vertigo Status: Resolved Assessment & Plan: Supportive care Fall risk (5) Acute constipation Status: Resolved Assessment & Plan: Colace, Miralax (6) Sore throat Status: Acute Assessment & Plan: Chloraseptic spray Discharge Summary Discharge Physical Examination Allergies: Coded Allergies: No Known Drug Allergies (Unverified , 08/09/17) Vitals & I&Os Vital Signs Date Time Temp Pulse Resp B/P (MAP) Pulse Ox O2 Delivery O2 Flow Rate FiO2 08/11/17 08:36 Room Air 08/11/17 08:32 97.8 86 18 150/67 (94) 93 08/09/17 16:26 21 Hospital Course Hospital course: Patient had an uneventful hospital course she was admitted placed in observation status due to inability to walk due to influenza infection. Breathing treatments and coughing medication were both given with good results in constipation issue resolved by time of discharge. Walker was provided by DME and she will go home with her daughter that her frail status and advanced age preclude anything but a poor prognosis and patient will be at high risk for pneumonia following influenza but will have close follow-up with primary care provider this week. Labs (last 24 hrs) Microbiology 08/09/17 Blood Culture - Preliminary, Resulted No growth 08/09/17 Influenza Types A,B Antigen (CARL) - Final, Complete Discharge Home Medications: Active Scripts Active Tamiflu (Oseltamivir Phosphate) 30 Mg Capsule 0 Each PO BID 2 Days Reported Lisinopril 40 Mg Tablet 40 Mg PO DAILY Multi-Vitamin Daily (Multivitamin) 1 Each Tablet 1 Tab PO DAILY Vitamin D-3 (Cholecalciferol (Vitamin D3)) 2,000 Unit Capsule 2,000 Unit PO DAILY Omeprazole 20 Mg Capsule.dr 20 Mg PO DAILY Amlodipine Besylate 5 Mg Tablet 5 Mg PO DAILY Instructions to patient/family Please see electronic discharge instructions given to patient. Clinical Quality Measures DVT/VTE Risk/Contraindication: Risk Factor Score Per Nursin RFS Level Per Nursing on Admit: 3=High Copy Copies To 1: OLGA HILTON MD, MINDI DO Aug 11, 2017 12:21
== END 2017-08-11 12:42 | disposition home or self-care (01) ==
LOC: EDUNIT# 07:16 → ER 07:17 → 4TH 09:01
PROVIDERS: ADMIT Internal Medicine; ATTEND Internal Medicine
DX: J11.1 Influenza due to unidentified influenza virus with other respiratory manifestations (principal); R06.2 Wheezing; E87.1 Hypo-osmolality and hyponatremia; R42 Dizziness and giddiness; K59.00 Constipation, unspecified; R53.1 Weakness; I10 Essential (primary) hypertension; E78.00 Pure hypercholesterolemia, unspecified; K21.9 Gastro-esophageal reflux disease without esophagitis; Z79.899 Other long term (current) drug therapy
CPT/HCPCS: 36415; 71045; 71046; 80053; 85007; 85025; 85027; 87040; 87804; 94640; 94760; 96360; G0378